=== PATIENT | female | born 1985 | race Two or more races ===

== ENCOUNTER 2018-12-21 09:55 | Emergency (ER) | payer MEDICAID ==
[~2018-12-21] VITALS: Ht 165.1 cm; Wt 96.2 kg
[2018-12-21 10:04] VITALS: BP 118/79
== END 2018-12-21 11:24 | disposition home or self-care (01) ==
LOC: ER 09:55
DX: H66.93 Otitis media, unspecified, bilateral (principal); J03.90 Acute tonsillitis, unspecified